=== PATIENT | female | born 1935 | race Caucasian/White ===

== ENCOUNTER 2016-10-20 19:48 | Observation (INO) ==
--- NOTE | 2016-10-20 20:01 | Emergency Department Report ---
Syncope HPI - General Chief Complaint: Nausea/Vomiting/Diarrhea Stated Complaint: Weakness/Nausea Time Seen by Provider: 10/20/16 19:54 Source: patient, EMS, RN notes reviewed, old records reviewed Mode of arrival: EMS Limitations: no limitations - History of Present Illness HPI narrative: 81yo woman presented to the ER by EMS for syncope. Pt was at home, speaking with her daughter on the phone. Pt felt faint and nauseated; she began to dry heave, then had a small BM in the chair where she was sitting. By the time EMS arrived, pt was back to baseline. Pt c/o fatigue, which is chronic for her. Pt was sent to the ER by her PCM earlier today. Pt was thoroughly evaluated; pt had hyponatremia, which is baseline for her. No other abn's noted at that time. Pt is trying to care for her , who is in poor health. She does not want to live at home, but will not move to assisted living/[facility]cf. Pt has been 'weak' and 'tired' for quite some time. MD complaint: loss of consciousness Onset (ago): minute(s) Duration of episode: 30 : Seconds Prodromal symptoms: none Witnessed: no Context: other (During BM) Injuries sustained associated with event: none Current symptoms: back to baseline History: previous syncopal episode Treatments prior to arrival: IV fluids - Related Data Home Medications Medication Instructions Recorded Confirmed Sertraline HCl [Zoloft] 100 mg PO WS #0 08/24/09 10/20/16 Metaxalone 400 mg PO BID #0 06/16/14 10/20/16 Acetaminophen [Tylenol Extra 1,000 mg PO TID PRN #0 12/24/14 10/20/16 Strength] Chlorthalidone 25 mg PO NOON #0 12/24/14 10/20/16 Multivitamin [Multivitamins] 1 tab PO NOON #0 12/24/14 10/20/16 Ca/D3/Mag#11/Zinc/Pharmacist In Charge/Esvin/Bor 1 tab PO BID #0 01/10/16 10/20/16 [Caltrate 600+D Plus Tablet] Cholestyramine [Cholestyramine 1 dose PO DAILY PRN #0 01/10/16 10/20/16 Resin] Simethicone [Gas-X] 20 tab PO DAILY PRN #0 01/10/16 10/20/16 Nitroglycerin [Nitrostat] 0.4 mg SL Q5MIN3 PRN #100 tab 02/02/16 10/20/16 Docusate Sodium 100 mg PO DAILY PRN 10/20/16 10/20/16 Ibuprofen 400 mg PO BID 10/20/16 10/20/16 Ketotifen Fumarate [Eye Itch 1 drop EACH EYE BID PRN 10/20/16 10/20/16 Relief] Mag Hydrox/Aluminum Hyd/Simeth 30 ml PO DAILY PRN 10/20/16 10/20/16 [Maalox Advanced Suspension] Meloxicam [Meloxicam] 7.5 mg PO DAILY 10/20/16 10/20/16 Phenyleph/Pramoxin/Glycr/W.pet 1 applic RECTALLY DAILY PRN 10/20/16 10/20/16 [Preparation H Cream] Previous Rx's Medication Instructions Recorded Sotalol HCl [Betapace] 40 mg PO BID 30 Days 02/03/16 Allergies Allergy/AdvReac Type Severity Reaction Status Date / Time azithromycin Allergy Unknown Diarrhea Verified 10/20/16 14:52 nitrofurantoin Allergy Unknown Vomiting Verified 10/20/16 14:50 [From Macrodantin] oxycodone Allergy Unknown Hallucinati Verified 10/20/16 14:52 ng tetracycline Allergy Unknown Diarrhea Verified 10/20/16 14:52 tramadol AdvReac Intermediate DEPRESSED Verified 10/20/16 14:48 MOOD hydrocodone AdvReac Unknown Hallucinati Verified 10/20/16 14:50 ng Review of Systems All systems: reviewed and negative except as stated Constitutional: Reports: weakness Neurological: Reports: weakness PFSH Patient Stated Medical History Hearing Loss Yes Cardiac Arrhythmia Yes Hx Incontinence Yes Osteoarthritis Yes Other Musculoskeletal Yes: RHEUMATOID ARTHRITIS Depression Yes Medical History Updates: hypothyroid - Social History Smoking status: Never smoker Physical Exam - Limitations Limitations: no limitations - General General appearance: alert, in no apparent distress - Normal Exams: Head:: Normocephalic without trauma Eyes:: Pupils are PERRLA w/ EOMI, No scleral icterus, irritation, or foreign bodies noted ENMT:: No facial trauma, nasal exudates, pharyngeal erythema, or exudates are noted Neck:: Full range of motion, without adenopathy, JVD, bruits or thyromegaly Chest/Respirations:: Clear all erickson, with good airflow, and symmetry bilaterally Cardiovascular:: Regular rate and rhythm, without murmur or gallop, Pulses 2+ all extremities, capillary refill, <2 seconds all extremities Abdomen:: Bowel sounds positive, soft, non-tender, non-distended, no hepatosplenomegaly, masses or bruits noted Lymphatic:: No lymphadenopathy, or lymphedema noted Musculoskeletal:: No tenderness, or deformity noted, good range of motion, all extremities Integumentary:: No rashes, hives, or bruising noted, hair and nails, without abnormality Neurological:: Patient is alert, and oriented, cranial nerves, motor/sensory/ cerebellar, exams w/o gross deficits, to observation - Psychiatric Psychiatric exam: Present: depressed, anxious, flat affect Course Course Narrative: Pt with no obvious, single cause for her symptoms. Pt has a long h/o depression , is obviously suffering from caregiver fatigue, and has chronic hyponatremia. Pt is taking chlorthalidone, which can cause hyponatremia and PVCs. Discussed care of pt with Dr. Hansen's [employer] SAL[employer]ERSON; will place inpt for overnight obs and re-eval in AM. - Consultations Consultation #1: Dr. Hansen: After long discussion with Celia, will place pt in facility for telemetry and re-evaluation in the AM. Will plan to d/c chlorthalidone. Time: 21:12 Vital Signs Temperature 97.7 F 10/20/16 20:01 Pulse Rate 69 10/20/16 20:01 Respiratory Rate 20 10/20/16 20:01 Blood Pressure 140/65 H 10/20/16 20:01 Pulse Oximetry 96 10/20/16 20:01 Temperature 97.7 F 10/20/16 20:01 Pulse Rate 74 10/20/16 20:54 Respiratory Rate 15 10/20/16 20:54 Blood Pressure 97/52 10/20/16 20:54 Pulse Oximetry 96 10/20/16 20:54 Syncope - Differential Diagnosis Likely: syncope due to orthostatic hypotension, vasovagal syncope, dehydration ( Depression, hyponatremia) - Medical Records Attestation: I reviewed the patient's medical records. - Lab Data Attestation: I reviewed the patient's lab results. Result diagrams: 10/20/16 20:07 10/20/16 20:07 Lab Results 10/20/16 10/20/16 Range/Units 20:07 20:07 WBC 6.0 (4.5-11.0) T/MM3 RBC 3.82 L (4.00-5.20) M/MM3 Hgb 12.6 (12-16) GM/DL Hct 35.4 L (36-46) % MCV 92.7 (80-100) UM3 MCH 33.0 (26-34) UUG MCHC 35.6 (31-37) GM/DL RDW Std Deviation 37.0 (36.9-50.2) FL Plt Count 208 (130-400) T/MM3 MPV 9.9 (9.4-12.4) UM3 Neutrophils % (Manual) 62.0 (33-66) % Lymphocytes % (Manual) 34.0 (23-45) % Monocytes % (Manual) 4.0 (0-9.0) % Neutrophils # (Manual) 3.7 (1.8-7.7) T/MM3 Lymphocytes # (Manual) 2.0 (1-4.8) T/MM3 Monocytes # (Manual) 0.2 (0-0.8) T/MM3 RBC Morph Comment Normal Turbidity < 20 (0-20) Sodium 131 L (134-144) MEQ/L Potassium 3.2 L (3.6-5) MEQ/L Chloride 95 L D (98-107) MEQ/L Carbon Dioxide 22 (22-30) MEQ/L Anion Gap 14 (5-15) MEQ/L BUN 22.0 H (7-17) MG/DL Creatinine 0.9 (0.7-1.2) MG/DL GFR Calculation 60 BUN/Creatinine Ratio 24 (6-26) RATIO Glucose 179 H (65-110) MG/DL Calculated Osmolality 260 L (261-280) MOSM/KG Calcium 9.5 (8.4-10.2) MG/DL Icterus Index < 2 (0-7) Troponin I < 0.012 (0-0.12) ng/ml Specimen Hemolysis < 15 (0-25) - EKG Data EKG #1 EKG attestation: Yes: I reviewed and interpreted this EKG. EKG shows normal: sinus rhythm, intervals, QRS complexes, ST-T waves Rhythm: PVC's Conner/QRS: left axis deviation Disposition Clinical Impression: Frequent PVCs [place] [facility] [place]: No Action Sertraline HCl [Zoloft] 100 mg PO WS #0 Multivitamin [Multivitamins] 1 tab PO NOON #0 Chlorthalidone 25 mg PO NOON #0 Nitroglycerin [Nitrostat] 0.4 mg SL Q5MIN3 PRN #100 tab PRN Reason: Chest Pain Docusate Sodium 100 mg PO DAILY PRN PRN Reason: Constipation Mag Hydrox/Aluminum Hyd/Simeth [Maalox Advanced Suspension] 30 ml PO DAILY PRN PRN Reason: Prn Orders Ketotifen Fumarate [Eye Itch Relief] 1 drop EACH EYE BID PRN PRN Reason: Prn Orders Ibuprofen 400 mg PO BID Phenyleph/Pramoxin/Glycr/W.pet [Preparation H Cream] 1 applic RECTALLY DAILY PRN PRN Reason: Prn Orders Metaxalone 400 mg PO BID #0 Acetaminophen [Tylenol Extra Strength] 1,000 mg PO TID PRN #0 PRN Reason: Pain Ca/D3/Mag#11/Zinc/Pharmacist In Charge/Esvin/Bor [Caltrate 600+D Plus Tablet] 1 tab PO BID #0 Simethicone [Gas-X] 20 tab PO DAILY PRN #0 PRN Reason: Gas Cholestyramine [Cholestyramine Resin] 1 dose PO DAILY PRN #0 PRN Reason: Prn Orders Sotalol HCl [Betapace] 40 mg PO BID 30 Days Meloxicam [Meloxicam] 7.5 mg PO DAILY Referrals: Norm Hernandez DO [Family Provider] - Time of Disposition: 21:49 - Seen By: physician
[2016-10-20 22:45] VITALS: BMI 24.7
[2016-10-20] MEDS ORDERED: ACETAMINOPHEN 500 MG TABLET PO PRN (23:01)
[2016-10-20] MEDS ORDERED: SIMETHICONE 80 MG CHEWABLE TABLET PO PRN (23:01)
[2016-10-20] MEDS ORDERED: MAG-AL + SIM ORAL LIQUID 30ml PO PRN (23:01)
[2016-10-20] MEDS ORDERED: BENZOCAINE 20% HEMORRHOIDAL OINT 28 GM TOP PRN (23:01)
[2016-10-20] MEDS ORDERED: NITROGLYCERIN 0.4 MG SUBLINGUAL TABLET SL PRN (23:01)
[2016-10-20] MEDS ORDERED: DOCUSATE SODIUM 100 MG CAPSULE PO PRN (23:01)
[2016-10-20] MEDS ORDERED: NS 1,000 ML IV SCH (23:15)
[2016-10-20] MEDS: MAGNESIUM SULFATE 1gm PREMIX 1 GM/100 ML BAG IV SCH (23:51)
[2016-10-21] MEDS: MAGNESIUM SULFATE 1gm PREMIX 1 GM/100 ML BAG IV SCH (00:55)
[2016-10-21] MEDS ORDERED: MELOXICAM 7.5 MG TABLET PO SCH (09:00)
[2016-10-21] MEDS ORDERED: SOTALOL 80 MG TABLET PO SCH (09:00)
[2016-10-21] MEDS ORDERED: IBUPROFEN 200 MG TABLET PO SCH (09:00)
[2016-10-21] MEDS ORDERED: METAXALONE 800 MG TABLET PO SCH (09:00)
[2016-10-21] MEDS ORDERED: ONDANSETRON ODT 4 MG TABLET PO PRN (09:51)
--- NOTE | 2016-10-21 09:59 | Cardiology History & Physical ---
History of Present Illness Chief complaint: frequent pvcs/weakness HPI: the following is the er encounter 10-20-16 81yo woman presented to the ER by EMS for syncope. Pt was at home, speaking with her daughter on the phone. Pt felt faint and nauseated; she began to dry heave, then had a small BM in the chair where she was sitting. By the time EMS arrived, pt was back to baseline. Pt c/o fatigue, which is chronic for her. Pt was sent to the ER by her PCM earlier today. Pt was thoroughly evaluated; pt had hyponatremia, which is baseline for her. No other abn's noted at that time. Pt is trying to care for her , who is in poor health. She does not want to live at home, but will not move to assisted living/chcf. Pt has been 'weak' and 'tired' for quite some time Patient is a 81yo female that is well known to Dr. Hansen that presented to the ER for the second time yesterday with several complaints including weakness , fatigue, nausea, vomiting x1, incontinent diarrhea x1. Na and K+ was found to be low and caregiver stress was verbalized by patient having to take care of her declining . ER physician also noted frequent PVCs with position change from lying to sitting. Patient admitted for overnight observation. Review of Systems - Constitutional Constitutional: Present: daytime sleepiness, fatigue, lethargy - EENMT Eyes: Absent: blurry vision, loss of vision Mouth/Throat: Absent: sore throat, drooling - Cardiovascular Cardiovascular: Absent: chest pain, palpitations, syncope Rhythm: Present: regular rhythm Vascular: Absent: pedal edema, unilateral swelling - Respiratory Respiratory: Absent: cough, dyspnea, wheezing, chest congestion - Gastrointestinal Gastrointestinal: Present: diarrhea, nausea, vomiting. Absent: dysphagia - Genitourinary Genitourinary: Absent: as per HPI - Musculoskeletal Musculoskeletal: Present: back pain, limited range of motion, myalgias. Absent : joint swelling - Integumentary/Breasts Integumentary: Absent: as per HPI, change in nails - Neurological Neurological: Present: weakness. Absent: abnormal gait, confusion, dizziness, focal weakness, frequent falls, headache(s), lack of coordination, numbness - Psychiatric Psychiatric: Present: depression. Absent: abnormal sleep pattern Psychiatric Comments: memory care program resident stress - Endocrine Endocrine: Absent: flushing, heat intolerance, polyuria - Hematologic/Lymphatic Hematologic/Lymphatic: Absent: easy bleeding, easy bruising - Allergic/Immunologic Allergic/Immunologic: Absent: tongue swelling, seasonal rhinorrhea, lip swelling PFSH Patient Stated Medical History Cataracts Yes: Removed 2017 Hearing Loss Yes Cardiac Arrhythmia Yes: PVCs Hypertension Yes Gastroesophageal Reflux Yes Disease Hx Incontinence Yes Osteoarthritis Yes Other Musculoskeletal Yes: RHEUMATOID ARTHRITIS Depression Yes Medical History Updates: hypothyroid, frequent PVCs, lumbar fractures Surgical History: none reported Family History: heart disease-father - Social History Smoking status: Never smoker second hand exposure: No Substance use type: does not use Alcohol intake frequency: does not drink Household members: significant other service: No Current occupational status: retired Current occupational exposures/hazards: No Current residence: Apartment/Private Home Medications Home Medications Medication Instructions Recorded Confirmed Type Sertraline HCl [Zoloft] 100 mg PO WS #0 08/24/09 10/20/16 History Metaxalone 400 mg PO BID #0 06/16/14 10/20/16 History Acetaminophen [Tylenol Extra 1,000 mg PO TID PRN #0 12/24/14 10/20/16 History Strength] Multivitamin [Multivitamins] 1 tab PO NOON #0 12/24/14 10/20/16 History Ca/D3/Mag#11/Zinc/Loan Review Analyst/Esvin/Bor 1 tab PO BID #0 01/10/16 10/20/16 History [Caltrate 600+D Plus Tablet] Cholestyramine [Cholestyramine 1 dose PO DAILY PRN #0 01/10/16 10/20/16 History Resin] Simethicone [Gas-X] 20 tab PO DAILY PRN #0 01/10/16 10/20/16 History Nitroglycerin [Nitrostat] 0.4 mg SL Q5MIN3 PRN #100 tab 02/02/16 10/20/16 History Ibuprofen 400 mg PO BID 10/20/16 10/20/16 History Ketotifen Fumarate [Eye Itch 1 drop EACH EYE BID PRN 10/20/16 10/20/16 History Relief] Mag Hydrox/Aluminum Hyd/Simeth 30 ml PO DAILY PRN 10/20/16 10/20/16 History [Maalox Advanced Suspension] Phenyleph/Pramoxin/Glycr/W.pet 1 applic RECTALLY DAILY PRN 10/20/16 10/20/16 History [Preparation H Cream] Allergies Allergy/AdvReac Type Severity Reaction Status Date / Time azithromycin Allergy Unknown Diarrhea Verified 10/20/16 14:52 nitrofurantoin Allergy Unknown Vomiting Verified 10/20/16 14:50 [From Macrodantin] oxycodone Allergy Unknown Hallucinati Verified 10/20/16 14:52 ng tetracycline Allergy Unknown Diarrhea Verified 10/20/16 14:52 tramadol AdvReac Intermediate DEPRESSED Verified 10/20/16 14:48 MOOD hydrocodone AdvReac Unknown Hallucinati Verified 10/20/16 14:50 ng Exam Vital signs: Temperature 97.5 F 10/21/16 07:50 Pulse Rate 80 10/21/16 08:00 Respiratory Rate 18 10/21/16 07:50 Blood Pressure 149/74 H 10/21/16 07:50 Pulse Oximetry 98 10/21/16 07:50 Oxygen Delivery Method Room Air - Constitutional no acute distress - Routine HEENT Exam Head: Present: normocephalic, atraumatic Eye: Present: EOMI ENT: Present: mucous membranes moist Nose: moist mucous membranes Throat: normal inspection - Routine Neck Exam Present: full ROM. Absent: JVD, carotid bruit - Routine Chest/Breast/Axilla Exam Chest wall: Absent: tenderness - Routine Respiratory Exam Absent: accessory muscle use, patient mechanically ventilated, dyspnea, decreased breath sounds, wheezes, crackles - Routine Cardiovascular Exam Present: RRR, S1, S2, no murmur. Absent: tachycardia, irregular rhythm, irregularly irregular, JVD - Routine Abdominal Exam Present: non tender. Absent: soft - Routine Extremities Exam Absent: clubbing Comments: trace bilateral edema LE - Routine Back/Spine/Pelvis Exam Back/Spine: Present: paraspinal tenderness, muscle spasm. Absent: abnormal straight leg raise, erythema, warmth - Routine Skin Exam Present: intact, dry - Routine Neurological Exam Present: alert - Routine Psychiatric Exam Present: normal affect Results 10/21/16 01:24 10/21/16 01:24 Cardiac Enzymes 10/21/16 Range/Units 01:24 AST 28 (14-36) U/L Troponin I < 0.012 (0-0.12) ng/ml B-Natriuretic Peptide 468 H (0-175) pg/mL Coagulation 10/21/16 Range/Units 01:24 B-Natriuretic Peptide 468 H (0-175) pg/mL CBC 10/21/16 Range/Units 01:24 WBC 5.3 (4.5-11.0) T/MM3 RBC 3.73 L (4.00-5.20) M/MM3 Hgb 12.5 (12-16) GM/DL Hct 34.8 L (36-46) % Plt Count 194 (130-400) T/MM3 Neut # 3.7 (1.8-7.7) T/MM3 Lymph # 1.3 (1-4.8) T/MM3 Ashley # 0.4 (0-0.8) T/MM3 Eos # 0.0 (0-0.5) T/MM3 Baso # 0.0 (0-0.2) T/MM3 Comprehensive Metabolic Panel 10/21/16 Range/Units 01:24 Sodium 132 L (134-144) MEQ/L Potassium 3.4 L (3.6-5) MEQ/L Chloride 93 L (98-107) MEQ/L Carbon Dioxide 27 (22-30) MEQ/L BUN 18.0 H (7-17) MG/DL Creatinine 0.7 D (0.7-1.2) MG/DL Glucose 188 H (65-110) MG/DL Calcium 9.3 (8.4-10.2) MG/DL AST 28 (14-36) U/L ALT 36 (9-52) U/L Alkaline Phosphatase 80 (38-126) U/L Total Protein 7.1 (6.3-8.2) G/DL Albumin 4.4 (3.5-5.0) G/DL Intake and Output 10/20/16 10/21/16 10/21/16 22:59 06:59 14:59 Intake Total 488.75 / 488.75 Output Total 1700 / 1700 400 / 400 Balance -1211.25 / -1211.25 -400 / -400 Intake: IV 388.75 / 388.75 MAG SULF 1gm PREMIX 1 gm 200 / 200 In 100 ml @ 100 mls/hr IV Q1H KELLEN Rx#:[id number] Normal Saline 1,000 ml @ 188.75 / 188.75 75 mls/hr IV .[id number] KELLEN Rx#:[id number] Oral 100 / 100 Output: Urine 1700 / 1700 400 / 400 Other: Weight 61.5 kg 60.7 kg Patient Weight 10/22/16 06:59 Weight 60.7 kg EKG interpretations - EKG EKG results cardiology: WNL, sinus rhythm - Dysrhythmias Sinus rhythms and dysrhythmias: sinus rhythm Hospital Course This is a general summary of the patient's hospital course. For more details refer to the complete medical record. Hospital course: PVC's No significant arrhythmia's noted overnight on telemetry. EKG SR 70's with occasional PVCs Continue Sotalol 40mg po BID Correct electrolytes Stop chlorthalidone Echo- preliminary reading EF 60% Nausea/Vomiting/Diarrhea Stop either Meloxicam or Ibuprofen KUB: possible gastritis Start Prilosec 20mg po daily Weakness/Caregiver stress Consult case management Assessment and Plan (1) Frequent PVCs Problem details: correct electrolytes Status: Acute (2) Hyponatremia Problem details: fluid replacement Status: Acute (3) Hypokalemia Problem details: Replaced with potassium 40meq BID Status: Acute (4) Gastritis Problem details: Take only one NSAID on home med list: Ibuprofen and Meloxicam Start Prilosec Status: Acute - Attestation Attestation Narrative: 10/23/16 16:01 Recommendation After examining the patient I agree with the above assessment. I am involved in the formulation of the patient's plan of care. Sepsis Assessment - Evaluation Sepsis screening result: No Definite Risk
--- NOTE | 2016-10-21 10:44 | XRay Report ---
Indication: n/v diarrhea XR KUB w upright: Comparison: 12/25/2014 Technique: Supine and erect films of the abdomen Findings: Patient shows random air fluid levels more suggestive of a generalized stasis. No free air noted. No marked distention identified. Since patient's old study there has been augmentation of L1 and L3 in the lumbar spine. Impression: Patient shows fairly nonspecific bowel gas pattern with some random air fluid levels suggestive of a stasis possibly due to gastroenteritis. No marked distention or free air noted. .
--- NOTE | 2016-10-21 12:17 | XRay Report ---
Indication: short of air/chest discomfort XR chest 1V: Comparison: 03/31/2014 and 10/20/2016 Technique: Single portable upright chest Findings: Patient shows no change in the heart size. Central vascularity is unremarkable. No acute pulmonary findings are identified. Patient showed degenerative changes in the spine with prior vertebral augmentation in the lumbar region. Impression: No acute cardiopulmonary findings. .
[2016-10-21] MEDS ORDERED: PNEUMOCOCCAL 13 VACCINE 0.5ml INJECTION IM ONE (15:00)
[2016-10-21 15:16] VITALS: O2SAT 98
[2016-10-21 15:17] VITALS: BP 158/69; RESP 17; TEMP 97.9
--- NOTE | 2016-10-21 15:33 | Discharge Summary ---
<Mercedes Menchaca - Last Filed: 10/21/16 15:36> Discharge Information Date of admission: 10/20/16 21:58 Anticipated date of discharge: 10/21/16 Attending Physician: Mike Hansen MD Primary care physician: Norm Hernandez, DO - Discharge Diagnosis Discharge Diagnosis: Weakness/ electrolyte imbalance - Procedures Procedures: Echo - Laboratory Labs: 10/21/16 01:24 10/21/16 01:24 - Radiology Radiology: Patient: Sadaf Vyas MR#: [id number] : 1935 Age/Sex: 81 / F ADM Date: 10/20/16 Loc: MED 139-P DIS Date: = = = = = = = = = = = = = = = = = = = = = = = = = = = = = = = = = = = = = = = = = = = = = = = = = = = = = = = = = = = Date of Exam: 10/21/16 Ordering Provider: Mercedes Menchaca APRN Type of Exam(s): XR KUB w upright Reason for Exam(s): n/v diarrhea Indication: n/v diarrhea XR KUB w upright: Comparison: 12/25/2014 Technique: Supine and erect films of the abdomen Findings: Patient shows random air fluid levels more suggestive of a generalized stasis. No free air noted. No marked distention identified. Since patient's old study there has been augmentation of L1 and L3 in the lumbar spine. Impression: Patient shows fairly nonspecific bowel gas pattern with some random air fluid levels suggestive of a stasis possibly due to gastroenteritis. No marked distention or free air noted. . Signed Patient: Sadaf Vyas MR#: [id number] : 1935 Age/Sex: 81 / F ADM Date: 10/20/16 Loc: MED 139-P DIS Date: = = = = = = = = = = = = = = = = = = = = = = = = = = = = = = = = = = = = = = = = = = = = = = = = = = = = = = = = = = = Date of Exam: 10/20/16 Ordering Provider: Mercedes Menchaca APRN Type of Exam(s): XR chest 1V Reason for Exam(s): short of air/chest discomfort Indication: short of air/chest discomfort XR chest 1V: Comparison: 03/31/2014 and 10/20/2016 Technique: Single portable upright chest Findings: Patient shows no change in the heart size. Central vascularity is unremarkable. No acute pulmonary findings are identified. Patient showed degenerative changes in the spine with prior vertebral augmentation in the lumbar region. Impression: No acute cardiopulmonary findings. . History of Present Illness HPI: the following is the er encounter 10-20-16 81yo woman presented to the ER by EMS for syncope. Pt was at home, speaking with her daughter on the phone. Pt felt faint and nauseated; she began to dry heave, then had a small BM in the chair where she was sitting. By the time EMS arrived, pt was back to baseline. Pt c/o fatigue, which is chronic for her. Pt was sent to the ER by her PCM earlier today. Pt was thoroughly evaluated; pt had hyponatremia, which is baseline for her. No other abn's noted at that time. Pt is trying to care for her , who is in poor health. She does not want to live at home, but will not move to assisted living/jail. Pt has been 'weak' and 'tired' for quite some time Patient is a 81yo female that is well known to Dr. Hansen that presented to the ER for the second time yesterday with several complaints including weakness , fatigue, nausea, vomiting x1, incontinent diarrhea x1. Na and K+ was found to be low and caregiver stress was verbalized by patient having to take care of her declining . ER physician also noted frequent PVCs with position change from lying to sitting. Patient admitted for overnight observation. Hospital Course This is a general summary of the patient's hospital course. For more details refer to the complete medical record. Hospital course: PVC's No significant arrhythmia's noted overnight on telemetry. EKG SR 70's with occasional PVCs Continue Sotalol 40mg po BID Correct electrolytes Stop chlorthalidone Echo- preliminary reading EF 60% Nausea/Vomiting/Diarrhea Stop either Meloxicam or Ibuprofen KUB: possible gastritis Start Prilosec 20mg po daily Weakness/Caregiver stress Consult case management Time spent with patient: discharge greater than 30 minutes Exam Vital signs: Temperature 97.9 F 10/21/16 15:16 Pulse Rate 68 10/21/16 15:16 Respiratory Rate 17 10/21/16 15:16 Blood Pressure 158/69 H 10/21/16 15:16 Pulse Oximetry 98 10/21/16 15:16 Oxygen Delivery Method Room Air - Constitutional no acute distress - Routine HEENT Exam Head: Absent: normocephalic Eye: Present: EOMI ENT: Present: mucous membranes moist Nose: moist mucous membranes - Routine Neck Exam Absent: JVD, carotid bruit - Routine Chest/Breast/Axilla Exam Chest wall: Absent: tenderness - Routine Respiratory Exam Absent: accessory muscle use, decreased breath sounds, respiratory distress - Routine Cardiovascular Exam Present: RRR, S1, S2. Absent: bradycardia - Routine Abdominal Exam Absent: soft, non tender, distended - Routine Rectal Exam Patient deferred: visual exam - Routine Extremities Exam Present: no edema. Absent: edema - Routine Back/Spine/Pelvis Exam Back/Spine: Absent: CVA tenderness, muscle spasm - Routine Skin Exam Present: intact - Routine Neurological Exam Present: alert, oriented X3 - Routine Psychiatric Exam Present: normal affect Results 10/21/16 01:24 10/21/16 01:24 Cardiac Enzymes 10/21/16 Range/Units 01:24 AST 28 (14-36) U/L Troponin I < 0.012 (0-0.12) ng/ml B-Natriuretic Peptide 468 H (0-175) pg/mL Coagulation 10/21/16 Range/Units 01:24 B-Natriuretic Peptide 468 H (0-175) pg/mL CBC 10/21/16 Range/Units 01:24 WBC 5.3 (4.5-11.0) T/MM3 RBC 3.73 L (4.00-5.20) M/MM3 Hgb 12.5 (12-16) GM/DL Hct 34.8 L (36-46) % Plt Count 194 (130-400) T/MM3 Neut # 3.7 (1.8-7.7) T/MM3 Lymph # 1.3 (1-4.8) T/MM3 [place] # 0.4 (0-0.8) T/MM3 Eos # 0.0 (0-0.5) T/MM3 Baso # 0.0 (0-0.2) T/MM3 Comprehensive Metabolic Panel 10/21/16 Range/Units 01:24 Sodium 132 L (134-144) MEQ/L Potassium 3.4 L (3.6-5) MEQ/L Chloride 93 L (98-107) MEQ/L Carbon Dioxide 27 (22-30) MEQ/L BUN 18.0 H (7-17) MG/DL Creatinine 0.7 D (0.7-1.2) MG/DL Glucose 188 H (65-110) MG/DL Calcium 9.3 (8.4-10.2) MG/DL AST 28 (14-36) U/L ALT 36 (9-52) U/L Alkaline Phosphatase 80 (38-126) U/L Total Protein 7.1 (6.3-8.2) G/DL Albumin 4.4 (3.5-5.0) G/DL Intake and Output 10/21/16 10/21/16 10/21/16 06:59 14:59 22:59 Intake Total 488.75 / 488.75 1930 / 1930 Output Total 1700 / 1700 1000 / 1000 Balance -1211.25 / -1211.25 930 / 930 Intake: IV 388.75 / 388.75 650 / 650 MAG SULF 1gm PREMIX 1 gm 200 / 200 In 100 ml @ 100 mls/hr IV Q1H [facility] Rx#:[id number] Normal Saline 1,000 ml @ 188.75 / 188.75 650 / 650 75 mls/hr IV .[id number] [facility] Rx#:[id number] Oral 100 / 100 1280 / 1280 Output: Urine 1700 / 1700 1000 / 1000 Other: Weight 60.7 kg Patient Weight 10/22/16 06:59 Weight 60.7 kg - EKG Interpretation EKG: sinus rhythm, normal ST/T Discharge Plan - Med Rec/Dispo Referrals/Follow Up: Mike Hansen MD [Physician] Carlos Dowd Instructions: Telemetry Monitoring (GEN) Additional Instructions: F/U in one week and have BMP drawn Continue sotalol Stop either Ibuprofen or Meloxicam. Do not take both of these medicines. Start Prilosec and f/u with PCP: Gastritis Stop Chlorthalidone Prescriptions: New Omeprazole [Prilosec] 1 cap PO ACB #30 cap Continue Sertraline HCl [Zoloft] 100 mg PO WS #0 Multivitamin [Multivitamins] 1 tab PO NOON #0 Nitroglycerin [Nitrostat] 0.4 mg SL Q5MIN3 PRN #100 tab PRN Reason: Chest Pain Mag Hydrox/Aluminum Hyd/Simeth [Maalox Advanced Suspension] 30 ml PO DAILY PRN PRN Reason: Prn Orders Ketotifen Fumarate [Eye Itch Relief] 1 drop EACH EYE BID PRN PRN Reason: Prn Orders Ibuprofen 400 mg PO BID Phenyleph/Pramoxin/Glycr/W.pet [Preparation H Cream] 1 applic RECTALLY DAILY PRN PRN Reason: Prn Orders Metaxalone 400 mg PO BID #0 Acetaminophen [Tylenol Extra Strength] 1,000 mg PO TID PRN #0 PRN Reason: Pain Ca/D3/Mag#11/Zinc/Fruit Farmer/Esvin/Bor [Caltrate 600+D Plus Tablet] 1 tab PO BID #0 Simethicone [Gas-X] 20 tab PO DAILY PRN #0 PRN Reason: Gas Cholestyramine [Cholestyramine Resin] 1 dose PO DAILY PRN #0 PRN Reason: Prn Orders Sotalol HCl [Betapace] 40 mg PO BID 30 Days #30 tab Docusate Sodium 100 mg PO DAILY PRN #30 PRN Reason: Constipation Discontinued Chlorthalidone 25 mg PO NOON #0 Meloxicam [Meloxicam] 7.5 mg PO DAILY - Disposition 01 Discharged Home, Self-Care <Mike Hansen - Last Filed: 10/23/16 16:02> Discharge Information Date of admission: 10/20/16 21:58 Attending Physician: Mike Hansen MD Primary care physician: Norm Hernandez DO - Laboratory Labs: 10/21/16 01:24 10/21/16 01:24 Hospital Course This is a general summary of the patient's hospital course. For more details refer to the complete medical record. Exam Vital signs: Temperature 97.9 F 10/21/16 15:16 Pulse Rate 81 10/21/16 16:00 Respiratory Rate 17 10/21/16 15:16 Blood Pressure 158/69 H 10/21/16 15:16 Pulse Oximetry 98 10/21/16 15:16 Oxygen Delivery Method Room Air Results 10/21/16 01:24 10/21/16 01:24 Discharge Plan - Med Rec/Dispo - Attestation Attestation Narrative: 10/23/16 16:02 Recommendation After examining the patient I agree with the above assessment. I am involved in the formulation of the patient's plan of care.
[2016-10-21 17:24] VITALS: PULSE 81
[2016-10-21] MEDS ORDERED: SERTRALINE 100 MG TABLET PO SCH (17:30)
[2016-10-21] MEDS ORDERED: PNEUMOCOCCAL VAC ADMIN CHARGE INJ ONE (18:24)
[2016-10-22] MEDS ORDERED: MELOXICAM 7.5 MG TABLET PO SCH (08:00)
--- NOTE | 2016-10-23 07:28 | Echocardiogram ---
DATE OF PROCEDURE October 21, 2016 This is a two-dimensional echo with spectral Doppler, color-flow and M-mode. It was obtained in a patient with syncope. Left atrial dimension is normal. Left ventricular end-diastolic dimension is normal. Left ventricle wall thickness is normal. LV systolic function is normal with ejection fraction of about 66%. Right atrium is normal. Right ventricle is normal. Aortic root dimension is normal. Mitral valve annulus is calcified. Mitral valve leaflets are normal with mild mitral regurgitation. Aortic valve shows mild fibrocalcific changes with no stenosis or insufficiency. Tricuspid valve shows mild tricuspid regurgitation with normal estimated pulmonary artery systolic pressure of 27. Pulmonary valve shows mild pulmonary insufficiency. There is no pericardial effusion. IMPRESSION 1. Normal LV systolic function with ejection fraction of 66%. 2. Mitral annulus calcification with mild mitral regurgitation. 3. Aortic sclerosis. 4. Mild tricuspid regurgitation with normal estimated pulmonary artery systolic pressure of 27. 5. Mild pulmonary insufficiency. MTDD
== END 2016-10-21 18:25 | disposition home or self-care (01) ==
LOC: ED 19:48 → MED 19:48
PROVIDERS: ADMIT Internal Medicine Cardiovascular Disease; ATTEND Internal Medicine Cardiovascular Disease